=== PATIENT | male | born 1990 | race African-American/Black ===

== ENCOUNTER 2023-06-23 19:18 | Emergency (ER) | payer OTHER ==
[~2023-06-23] VITALS: Ht 172.7 cm; Wt 95.5 kg
[2023-06-23 19:19] VITALS: TEMP 98.4
[2023-06-23] MEDS ORDERED: BUPR-50 PO (19:23)
[2023-06-23] MEDS ORDERED: DEXT10TA4 PO (19:25)
[2023-06-23] MEDS ORDERED: ARIP2TAB27 PO (19:25)
[2023-06-23] MEDS ORDERED: LISD10CA PO (19:26)
[2023-06-23] MEDS ORDERED: BUSP5TAB20 PO (19:26)
[2023-06-23 19:33] VITALS: BP 126/70; PULSE 98; RESP 16
== END 2023-06-23 19:51 | disposition home or self-care (01) ==
LOC: EMS 19:20
DX: F90.9 Attention-deficit hyperactivity disorder, unspecified type (principal); F41.9 Anxiety disorder, unspecified; Z98.890 Other specified postprocedural states; Z76.0 Encounter for issue of repeat prescription
CPT/HCPCS: 99281; Z7502

== ENCOUNTER 2023-06-30 23:54 | Emergency (ER) | payer OTHER ==
[~2023-06-30] VITALS: Ht 172.7 cm; Wt 80.0 kg
[~2023-06-30 23:54] MED LIST: ARIP2TAB27 PO; BUSP5TAB20 PO; DEXT10TA4 PO; LISD10CA PO
[2023-06-30 23:58] VITALS: TEMP 98
[2023-07-01] MEDS ORDERED: DEXT10TA4 PO (02:30)
[2023-07-01 02:48] VITALS: BP 118/69; PULSE 90; RESP 14
== END 2023-07-01 02:50 | disposition home or self-care (01) ==
LOC: EMS 23:56
DX: F41.9 Anxiety disorder, unspecified (principal); F90.9 Attention-deficit hyperactivity disorder, unspecified type; Z76.0 Encounter for issue of repeat prescription
CPT/HCPCS: 99281; Z7502

== ENCOUNTER 2023-08-26 05:40 | Emergency (ER) | payer OTHER ==
[~2023-08-26] VITALS: Ht 172.7 cm; Wt 90.9 kg
[2023-08-26 05:47] VITALS: TEMP 98.4
[2023-08-26] MEDS ORDERED: BUSP10TA3 PO ×2 (05:56→06:20)
[2023-08-26] MEDS ORDERED: DEXT10TA19 PO ×2 (05:56→06:21)
[2023-08-26] MEDS ORDERED: ARIP10TA38 PO ×2 (05:56→06:20)
[2023-08-26] MEDS ORDERED: DEXT20CA4 PO ×2 (05:56→06:21)
[2023-08-26 06:06] VITALS: BP 132/69; PULSE 94; RESP 15
== END 2023-08-26 07:03 | disposition home or self-care (01) ==
LOC: EMS 05:41
DX: F90.9 Attention-deficit hyperactivity disorder, unspecified type (principal); F41.9 Anxiety disorder, unspecified; Z98.52 Vasectomy status
CPT/HCPCS: 99281; Z7502